=== PATIENT | female | born 1975 | race Caucasian/White ===

== ENCOUNTER → 2022-05-31 | Outpatient (REF) | payer BC | LOC: M SFHCDERM 17:14 | PROVIDERS: ATTEND Dermatology | DX: D22.39 Melanocytic nevi of other parts of face (principal) ==

== ENCOUNTER → 2023-01-09 | Outpatient (REF) | payer BC | LOC: M SFHCDERM 14:24 | PROVIDERS: ATTEND Dermatology | DX: D22.0 Melanocytic nevi of lip (principal) ==

== ENCOUNTER → 2024-07-29 | Outpatient (REF) | payer BC | LOC: M SFHCLERA 09:28 | PROVIDERS: ATTEND Internal Medicine | DX: I10 Essential (primary) hypertension (principal); R53.83 Other fatigue; E08.65 Diabetes mellitus due to underlying condition with hyperglycemia ==

== ENCOUNTER → 2024-10-29 | Outpatient (CLI) | payer OTHER | LOC: M CARPUL 13:51 | PROVIDERS: ATTEND Internal Medicine | DX: R60.0 Localized edema (principal); I08.1 Rheumatic disorders of both mitral and tricuspid valves ==

== ENCOUNTER → 2024-11-25 | Outpatient (CLI) | payer OTHER | LOC: M SLEEP HO 14:27 | PROVIDERS: ATTEND Internal Medicine | DX: R53.83 Other fatigue (principal) ==

== ENCOUNTER 2025-01-25 10:14 | Day surgery (SDC) | payer OTHER ==
[~2025-01-25] VITALS: Ht 160 cm; Wt 107.5 kg
[~2025-01-25 10:14] MED LIST: AMLO1TAB24 PO; FERR325T81 PO; HYDR12.510 PO; JARD1TAB PO; METF500T13 PO; OMEP1CAP73 PO; ROSU5TAB49 PO; TELM1TAB33 PO; VITA100093 PO
[2025-01-25 11:20] VITALS: TEMP 97.4
[2025-01-25 11:42] VITALS: BP 134/71; O2SAT 96
== END 2025-01-25 11:48 | disposition home or self-care (01) ==
LOC: M OPP 10:14
PROVIDERS: ATTEND Surgery
DX: Z12.11 Encounter for screening for malignant neoplasm of colon (principal); K64.8 Other hemorrhoids; K64.4 Residual hemorrhoidal skin tags; Z91.013 Allergy to seafood; Z91.041 Radiographic dye allergy status; Z79.84 Long term (current) use of oral hypoglycemic drugs; Z79.899 Other long term (current) drug therapy

== ENCOUNTER → 2025-03-01 | Outpatient (REF) | payer OTHER ==
[2025-03-01 19:12] LABS: BASO # 0.1 10^3/uL (0.0-0.2); BASO % 0.7 % (0.0-1.0); EOS # 0.2 10^3/uL (0.0-0.5); EOS % 1.8 % (0.0-3.0); LYMPH # 2.4 10^3/uL (1.5-5.0); LYMPH % 22.7 % (24.0-44.0); MONO # 0.7 10^3/uL (0.0-0.8); MONO % 6.4 % (2.0-8.0); NEUTROPHILS # 7.3 10^3/uL (1.5-8.5); NEUTROPHILS % 68.1 % (36.0-66.0); PLATELET COUNT, AUTOMATED 328 10^3/uL (150-450)
[2025-03-01 19:17] LABS: ALT/SGPT 36.0 U/L (7.0-40); AST/SGOT 20.0 U/L (<34); CALCIUM LEVEL 9.5 MG/DL (8.5-10.1); CARBON DIOXIDE LEVEL 29.0 MMOL/L (20-31); CHLORIDE LEVEL 105.0 MMOL/L (98-107); CREATININE FOR GFR 0.86 MG/DL (0.55-1.30); GLOMERULAR FILTRATION RATE 83.8 (>58); IRON (FE) 62.0 UG/DL (50-170); PERCENT SATURATION 17.1 % (13.2-45.0); POTASSIUM SERUM 3.9 MMOL/L (3.5-5.1); SODIUM LEVEL 140.0 MMOL/L (136-145)
[2025-03-01 19:19] LABS: ESTIMATED AVERAGE GLUCOSE 163.0 MG/DL (60-110)
== END ==
LOC: M SFHCLERA 09:38
PROVIDERS: ATTEND Internal Medicine
DX: E61.1 Iron deficiency (principal); E11.65 Type 2 diabetes mellitus with hyperglycemia